=== PATIENT | female | born 1985 | race African-American/Black ===

== ENCOUNTER 2020-02-05 18:10 | Outpatient (CLI) | payer OTHER, SELFPAY ==
--- NOTE | ~2020-02-05 | XR_ITS ---
EXAMINATION: XR chest 2V DATE: 02/05/2020 18:28 INDICATION: Pneumonia, unspecified organism TECHNIQUE: PA and lateral views of the chest are obtained. COMPARISON: None available FINDINGS: There are subtle airspace opacities in the left lower lobe. There is no pleural effusion or pneumothorax. The cardiomediastinal silhouette is normal. The visualized bones and soft tissues are unremarkable. IMPRESSION: 1. Subtle airspace opacities in the left lower lobe, likely pneumonia. Reviewed, dictated and finalized at location A.
== END 2020-02-05 18:11 | disposition home or self-care (01) ==
LOC: ANHIMG 18:14
PROVIDERS: PCP Family Medicine; Visit Provider Family Medicine
DX: J18.9 Pneumonia, unspecified organism (principal); R91.8 Other nonspecific abnormal finding of lung field
CPT/HCPCS: 71046

== ENCOUNTER 2020-03-05 15:30 | Outpatient (CLI) | payer OTHER, SELFPAY ==
--- NOTE | ~2020-03-05 | XR_ITS ---
EXAMINATION: XR chest 2V DATE: 03/05/2020 15:53 INDICATION: History of pneumonia TECHNIQUE: PA and lateral views of the chest are obtained. COMPARISON: None available FINDINGS: The lungs are free of acute opacities. The previously identified left lower lobe airspace o pacities have resolved. There is no pleural effusion or pneumothorax. The cardiomediastinal silhouett e is normal. The visualized bones and soft tissues are unremarkable. IMPRESSION: 1. No acute cardiopulmonary abnormality. Reviewed, dictated and finalized at location A.
== END 2020-03-05 15:31 | disposition home or self-care (01) ==
LOC: ANHIMG 15:34
PROVIDERS: PCP Family Medicine; Visit Provider Family Medicine
DX: J18.9 Pneumonia, unspecified organism (principal)
CPT/HCPCS: 71046

== ENCOUNTER → 2021-03-30 11:44 | Outpatient (CLI) | payer OTHER, SELFPAY ==
--- NOTE | ~2021-03-30 | XR_ITS ---
EXAMINATION: XR shoulder RT min 2V DATE: 03/30/2021 14:22 INDICATION: Right shoulder pain. TECHNIQUE: 4 views of right shoulder were obtained. COMPARISON: None. FINDINGS: Bone alignment is normal. No fracture. Joint spaces are well maintained. IMPRESSION: 1. Normal right shoulder. Reviewed, dictated and finalized at location A. IMPRESSION: 1. Normal right shoulder.
--- NOTE | ~2021-03-30 | XR_ITS ---
EXAMINATION: XR_[id number]_CR EXAM DATE: 03/30/2021 14:22 INDICATION: Numbness radiating down right arm and posterior scapular region. Limited range of motion. Symptoms 2 months. TECHNIQUE: Cervical spine frontal, lateral, lateral swimmers, and open-mouth odontoid projections. There is no prior study for comparison. FINDINGS: There is mild reversal of the normal cervical lordosis which may be positional or spasm. Th ere is no evidence of acute cervical fracture. The odontoid process is intact. Pre-dens space is no rmal. Prevertebral soft tissue is normal. There are no soft tissue abnormalities identified. Verte bral body and disc heights are well-maintained. The vertebral bodies are aligned. No appreciable a rthropathy. IMPRESSION: 1. Mild reversal normal cervical lordosis. 2. Otherwise unremarkable exam. Reviewed, dictated and finalized at location A.
== END ==
PROVIDERS: PCP Family Medicine; Visit Provider Physician Assistant
DX: R20.2 Paresthesia of skin (principal); M25.519 Pain in unspecified shoulder
CPT/HCPCS: 72040; 73030

== ENCOUNTER 2024-05-31 09:33 | Outpatient (CLI) | payer OTHER, SELFPAY ==
--- NOTE | 2024-06-20 12:41 | WPDSLEEPSTUD ---
Sleep Study Date of Study: 05/31/24 Ordering Provider: Savanna Broussard MD Interpreting Physician: Brianda Mariee DO Sleep Study Type: Polysomnogram Height: 1.63 m Weight: 129.727 kg Body Mass Index: 49.1 Neck Circumference (inches): 16 [place]: 9 Reason for Sleep Study Unrefreshing sleep Sleep History The patient is a 39-year-old female that had a sleep study ordered by her primary care physician for evaluation on refreshing sleep. The patient denies awakening sleep short of breath. She rarely awakens at night with heartburn, belching or cough. She occasionally snores but it is never loud enough that others complain. She occasionally has trouble sleeping when she has a cold. She denies waking up gasping for air throughout the night. She denies having breathing problems at night observed by herself or others. She denies sweating excessively at night. She rarely has heart palpitations or irregular heartbeats during the night. She occasionally falls asleep during the day but never while driving. She denies sleep paralysis cataplexy. He denies having trouble at school or work due to sleepiness. She occasionally experiences vivid dreamlike scenes upon awakening or falling asleep. She denies feeling afraid of going to sleep. She denies having nightmares. She occasionally remembers her dreams. She occasionally has thoughts racing through her mind. She rarely feels sad or depressed. She frequently has anxiety. She occasionally has muscular tension. She denies noticing parts of her body jerk. She denies kicking during the night. She rarely has crawling and aching feelings occasionally has leg pain during. She denies grinding her teeth during sleep denies awakening with morning jaw pain. She is rarely bothered by pain during the day and rarely awakened by pain during the night. She occasionally wakes up feeling stiff in the morning. She occasionally wakes up with sore or achy muscles. She denies waking up with pain in the neck, spine other joints. She goes to bed at 11:00 p.m. on both weekdays and weekends. It takes her 30-45 minutes to fall asleep. She wakes up twice throughout the night to urinate and get a drink. It takes her 10 minutes to fall back asleep. She wakes at either 4:30 or 6:00 a.m. on weekdays and 8:00 a.m. weekends. She typically gets 5-6 hours of sleep per night. She will stay in bed for 10 minutes after waking up in morning. She currently lives with her 3 children. She denies consuming any caffeinated beverages within 2 hours of bedtime. She will occasionally engage in physical exercise before bedtime. She will occasionally read before falling asleep. She denies watching television before falling asleep. She will occasionally take naps afternoon the evening but they are not refreshing. She consumes 2 caffeinated beverages per day. She denies tobacco and recreational drug use. She will occasionally consume alcoholic beverages. [facility] Past Medical History Medical History Gastro-esophageal reflux disease without esophagitis H/O varicella Mixed hyperlipidemia Pre-diabetes Stress Surgical History Surgical History H/O tubal ligation Family History Family History Mother Family history of elevated blood lipids Grandparent Diabetes mellitus Father Hypertension Social History Social History Smoking status: Never smoker Second hand tobacco smoke exposure: No Alcohol intake: current Substance use: never Substance use type: does not use Lack of Transportation: No Lack of Food: Never True Current Housing: I Have Housing Concerned About Future Housing: No Difficulty Paying Gas/Electric Bills: No Difficulty Paying for Meds: No Currently Unemploye
[2024-06-20 12:42] VITALS: BMI 49.1
== END 2024-06-01 07:22 | disposition home or self-care (01) ==
LOC: ANHCSM 09:35
PROVIDERS: PCP Family Medicine; Visit Provider Family Medicine
DX: G47.8 Other sleep disorders (principal); G47.33 Obstructive sleep apnea (adult) (pediatric)
CPT/HCPCS: 95810